=== PATIENT | male | born 1950 | race Caucasian/White ===

== ENCOUNTER → 2023-10-12 09:45 | Outpatient (REF) | payer OTHER, SELFPAY ==
[2023-10-12 11:18] LABS: Hematocrit 24.8 % (39.0-52.0); Hemoglobin 8.7 g/dL (13.0-18.0); Mean Corp Hgb Conc. 35.1 g/dL (33.0-37.0); Mean Corpuscular Hgb 33.5 pg (27.0-31.0); Mean Corpuscular Volume 95.4 fL (80.0-94.0); Mean Platelet Volume 12.9 fL (7.4-10.4); Platelet Count 31 10^3/uL (130-400); Red Cell Dist. Width 16.4 % (11.5-14.5)
[2023-10-12 11:52] LABS: Blood Urea Nitrogen 58 mg/dl (9-20); Calcium 8.8 mg/dl (8.4-10.2); Carbon Dioxide 21 mmol/L (22-30); Chloride 98 mmol/L (98-107); Glucose 272 mg/dl (70-99); Potassium 4.8 mmol/L (3.5-5.1); Sodium 129 mmol/L (135-145); eGFR 41.52
[2023-10-12 12:14] LABS: % Immature Granulocytes 8.9 % (0-0.5); % Lymphocytes 24.7 % (20.5-51.1); % Monocytes 10.1 % (1.7-9.3); % Neutrophils 57.6 % (42.2-75.2); Absolute Immature Granulocytes 0.1 10^3/uL (0-0.05); Absolute Lymphocytes 0.4 10^3/uL (1.2-3.4); Absolute Monocytes 0.2 10^3/uL (0.1-0.6); Absolute Neutrophils 0.9 10^3/uL (1.4-6.5); Nucleated Red Blood Cells % 50.6 % (-); White Blood Cell Count 1.6 10^3/uL (4.8-10.8)
== END ==
LOC: REG 09:45
PROVIDERS: ATTENDING PHYSICIAN Internal Medicine Hematology & Oncology; FAMILY PHYSICIAN Internal Medicine
DX: D47.2 Monoclonal gammopathy (principal); D61.818 Other pancytopenia; D63.0 Anemia in neoplastic disease; D46.9 Myelodysplastic syndrome, unspecified
CPT/HCPCS: 36415; 80048; 85025; 86850; 86900; 86901

== ENCOUNTER → 2023-10-15 09:31 | Outpatient (REF) | payer OTHER, SELFPAY ==
[2023-10-15 11:39] LABS: Hematocrit 22.7 % (39.0-52.0); Hemoglobin 7.8 g/dL (13.0-18.0); Mean Corp Hgb Conc. 34.4 g/dL (33.0-37.0); Mean Corpuscular Hgb 33.1 pg (27.0-31.0); Mean Corpuscular Volume 96.2 fL (80.0-94.0); Mean Platelet Volume 11.7 fL (7.4-10.4); Platelet Count 30 10^3/uL (130-400); Red Blood Cell Count 2.36 10^6/uL (4.70-6.10); Red Cell Dist. Width 16.8 % (11.5-14.5)
[2023-10-15 11:40] LABS: Absolute Neutrophils -Man Diff 1.3 10^3/uL (1.4-6.5); Acanthocytes FEW; Anisocytosis 1+; Band Neutrophils 0 % (0-3); Eosinophils 1 % (0-6); Hypochromasia 1+; Lymphocytes 24 % (20-51); Monocytes 3 % (2-9); Normal RBC Morphology No; Nucleated Red Blood Cells 63 (-); Ovalocytes 1+; Platelets Checked Yes; Polychromasia 2+; Segmented Neutrophils 72 % (42-75)
[2023-10-15 11:41] LABS: Total Cells Counted 100
[2023-10-15 11:42] LABS: White Blood Cell Count 1.9 10^3/uL (4.8-10.8)
== END ==
LOC: REG 09:31
PROVIDERS: ATTENDING PHYSICIAN Internal Medicine Hematology & Oncology; FAMILY PHYSICIAN Internal Medicine
DX: D47.2 Monoclonal gammopathy (principal); D61.818 Other pancytopenia; D63.0 Anemia in neoplastic disease; D46.9 Myelodysplastic syndrome, unspecified
CPT/HCPCS: 36415; 85025; 86850; 86900; 86901